=== PATIENT | female | born 1945 | race Caucasian/White ===

== ENCOUNTER → 2017-05-19 | Outpatient (CLI) | payer OTHER ==
[~2017-05-19] VITALS: Ht 170.2 cm; Wt 60.3 kg
[~2017-05-19] MED LIST: ATIVAN0.5 MG PO; CO Q-10100 MG PO; FLEXERIL PO; GUAIFEN-CODEINE10 ML PO; HALCION0.125 MG PO; LEVOTHYROXINE0.05 MG PO; MEDROLDOSEPACK PO; TESSALON PERLE100 MG PO; VITAMIN D1000 UNIT PO; ZOCOR20 MG PO
--- NOTE | ~2017-05-19 | S ---
[facility] [place] [address] SURGICAL PATH RPT PROCEDURE Name: MERLYN SANDOVAL Room #: REG [facility] Savage#: [id number] Admission: 05/19/17 Date of : 41 Discharge: Report #: [id number] Path Case #: [id number] PATHOLOGY REPORT COLLECTION DATE: 05/19/2017 RECEIVED DATE: 05/19/2017 SUBMITTING PHYS: Dr. Luis Seymour OTHER PHYS: Dr. Salas Sarmiento SPECIMEN(S) RECEIVED: A.Gastric bx * * * * * * * * * * * * FINAL DIAGNOSIS: Gastric mucosa, gastric rule out H. pylori, endoscopic biopsy: - Mild chronic antral gastritis with features of reactive gastropathy. - Negative for intestinal metaplasia or atrophy. - Negative for Helicobacter pylori. (IUV:rashmi; 05/20/2017) COMMENT: Well-controlled Helicobacter pylori immunohistochemical stain performed on block A1 - Negative. PATHOLOGIST: Christen Mcwilliams M.D. REPORT ELECTRONICALLY SIGNED BY: Christen Mcwilliams M.D. DATE/TIME: 05/20/2017 13:02 * * * * * * * * * * * * GROSS PATHOLOGY: Received in formalin labeled, "Merlyn Sandoval, gastric BX rule out H. pylori," are 3 fragments of bautista soft tissue measuring between 0.3 x 0.1 x 0.1 cm and 0.6 x 0.2 x 0.1 cm. They are entirely submitted in cassette A1. (SDY; 05/19/2017) CLINICAL HISTORY: Abdomen pain, nausea Nausea, normal EGD Rule out H. pylori INITIAL CPT CODE(S): A; 91593, 38619 [facility] [address] [place] [address] SURGICAL PATH RPT PROCEDURE Name: MERLYN SANDOVAL Room #: REG YAMEL Wan#: [id number] Admission: 05/19/17 Date of : 41 Discharge: Report #: [id number] Path Case #: [id number] [address] [facility] , [place] [address] Technical services performed by [facility] at [address] [place] [address], [address] [address]. [facility] [address] [place] [address] PHONE: [phone] DIRECTOR: Nestor Ramirez M.D. * * * END OF REPORT * * *
--- NOTE | ~2017-05-19 | P ---
[facility] [place] [address] PROCEDURE REPORT Name: ROXIE HUMPHREYS Room #: REG YAMEL Wan#: [id number] Admission: 05/19/17 Attend Phys: Luis Contreras Discharge: Date of : 41 Report #: [id number] THIS REPORT FOR: //name// CC: Salas Seymour DATE OF SERVICE: 05/19/2017 PROCEDURE PERFORMED: Upper endoscopy with biopsies. HISTORY OF PRESENT ILLNESS: The patient is a 71-year-old female with intermittent nausea. This has been ongoing for many years. She has had an extensive workup in the past including upper endoscopy with biopsy showing intestinal metaplasia of the gastric mucosa. Biopsies were negative for celiac sprue. Ultrasound of the abdomen was negative. PIPIDA scan and gastric emptying studies in the past were all negative. She reports the nausea is mild. It is intermittent. She can go several weeks to months between episodes. She denies any dysphagia or odynophagia. No significant heartburn symptoms. Plan is for upper endoscopy. PROCEDURE: The risks and benefits of the procedure were explained to the patient, those risks including, but not limited to bleeding, perforation, and the risk of sedation. She understood these risks and gave informed consent. Sedation was given using propofol per anesthesia. Next, using a standard hhgreggn upper endoscope, the scope was placed in the patient's mouth and advanced under direct vision through the esophagus, stomach and into the second portion of the duodenum. The larynx was normal in appearance. The esophagus was normal throughout. The GE junction was normal. Overall, the gastric mucosa was normal. Random biopsies were obtained. The pylorus was normal and patent. The duodenal bulb, first and second portion were all normal. The scope was then withdrawn and the procedure terminated. The patient tolerated the procedure well. IMPRESSION: Normal upper endoscopy. RECOMMENDATIONS: 1. Await biopsy results. 2. Recommend a trial of Zofran on a p.r.n. basis. Thank you for allowing me to participate in her care. <ELECTRONICALLY SIGNED> By: Luis Seymour MD 05/21/17 [id number] Luis Seymour MD /nt
== END | disposition home or self-care (01) ==
LOC: GI 07:34
DX: K29.50 Unspecified chronic gastritis without bleeding (principal); K31.9 Disease of stomach and duodenum, unspecified; F41.9 Anxiety disorder, unspecified; Z87.891 Personal history of nicotine dependence; Z98.890 Other specified postprocedural states; Z98.41 Cataract extraction status, right eye; Z98.42 Cataract extraction status, left eye; Z87.19 Personal history of other diseases of the digestive system; Z88.0 Allergy status to penicillin; Z88.2 Allergy status to sulfonamides; Z88.8 Allergy status to other drugs, medicaments and biological substances; Z79.899 Other long term (current) drug therapy
CPT/HCPCS: 62110; 62900